=== PATIENT | male | born 1985 | race African-American/Black ===

== ENCOUNTER 2025-02-09 06:22 | Inpatient (IN) | payer MEDICAID ==
[2025-02-09] VITALS (13 sets, daily range): BP systolic 108–149; BP diastolic 67–95; PULSE 59–118; RESP 10–20; TEMP 97.4–98.1; O2SAT 99–100
[~2025-02-09] VITALS: Ht 190.5 cm; Wt 103.8 kg
--- NOTE | 2025-02-09 06:29 | ELECTROCARDIOGRAPH REPORT ---
[facility] Test Date: 2025-02-09 Test Time: 06:26:57 Pat Name: TAQUERIA GOMEZ Department: [facility] Patient ID: [id number] Room: ORTHO 4021 Gender: M Beef Cattle Farmer: : 1985 Requested By: ZENAIDA ESCOBAR Order Number: [id number] Reading MD: Dr. Derrick Cook Measurements Intervals [place] Rate: 78 P: 44 KS: 196 QRS: -166 QRSD: 162 T: 93 QT: 448 QTc: 511 Interpretive Statements Sinus rhythm Probable left atrial enlargement RBBB and LPFB Inferior infarct, acute Lateral leads are also involved Baseline wander in lead(s) V3 Electronically Signed On 02-12-2025 13:44:[address] Derrick Cook Please click the below link to view image of tracing.
[2025-02-09 07:07] LABS: BASOPHILS % (AUTO) 0.3 % (0-1); EOSINOPHILS % (AUTO) 0.5 % (0-6); HEMATOCRIT 45.4 % (42.0-52.0); HEMOGLOBIN 15.3 g/dl (14.0-17.9); LYMPHOCYTES # (AUTO) 1.8 X10'3 (1.1-4.8); LYMPHOCYTES % (AUTO) 32.8 % (21-51); MEAN CORPUSCULAR HEMOGLOBIN 30.6 PG (27.0-31.0); MEAN CORPUSCULAR HGB CONC 33.8 g/dL (33.0-36.5); MEAN CORPUSCULAR VOLUME 90.4 FL (78-98); MEAN PLATELET VOLUME 10.2 FL (7.4-10.4); MONOCYTES # (AUTO) 0.3 X10'3 (0-0.9); NEUTROPHILS # (AUTO) 3.3 X10'3 (1.8-7.7); NEUTROPHILS % (AUTO) 60.4 % (42-75); PLATELET COUNT 169 X10'3 (140-440); RED BLOOD COUNT 5.02 X10'6 (4.70-6.10); RED CELL DISTRIBUTION WIDTH 14.4 % (11.5-14.5); WHITE BLOOD COUNT 5.4 X10'3 (4.5-11.0)
--- NOTE | 2025-02-09 07:07 | RADIOLOGY REPORT ---
CHEST RADIOGRAPH Indication: CP Technique: Single frontal view of the chest was obtained Comparison: None FINDINGS: Lines and Tubes: None Lungs: No focal consolidation. Pleura: No effusion. No pneumothorax. Cardiomediastinal contours: Cardiomegaly. Bones: No acute osseous abnormality. IMPRESSION: 1. Cardiomegaly. 2. No focal airspace disease.
[2025-02-09 07:32] LABS: ALANINE AMINOTRANSFERASE 29 U/L (12-78); ALBUMIN 4.1 G/DL (3.4-5.0); ALBUMIN/GLOBULIN RATIO 1.4 (1.1-1.5); ALKALINE PHOSPHATASE 50 IU/L (46-116); ANION GAP 9 (8-16); ASPARTATE AMINO TRANSFERASE 21 U/L (10-37); BLOOD UREA NITROGEN 8 MG/DL (7-18); BUN/CREATININE RATIO 7.3 (10.0-20.0); CALCIUM 8.7 MG/DL (8.5-10.1); CHLORIDE 104 MMOL/L (99-107); CREATININE 1.09 MG/DL (0.60-1.10); GLUCOSE 114 MG/DL (70-104); POTASSIUM 3.4 MMOL/L (3.5-5.1); SODIUM 142 MMOL/L (135-145); TOTAL CARBON DIOXIDE 28.7 MMOL/L (24-32); TOTAL PROTEIN 7.1 G/DL (6.4-8.2); eCRCL 108 ML/MIN; eGFR 75 ML/MIN
[2025-02-09 07:40] LABS: PRO BRAIN NATRIURETIC PEPTIDE 176 PG/ML (0-125)
[2025-02-09] MEDS ORDERED: ROSU10TA72 PO (07:59)
[2025-02-09] MEDS ORDERED: HYDR-3686 PO (08:00)
[2025-02-09] MEDS ORDERED: SERT25TA PO (08:00)
[2025-02-09] MEDS ORDERED: IRBE75TA15 PO (08:02)
--- NOTE | 2025-02-09 08:22 | Physician Documentation ---
History of Present Illness ~ Chief Complaint: Chest Pain Stated Complaint: CHEST PAIN Time Seen by MD: 08:18 Mode of Arrival: Ambulatory HPI 39-year-old male history of tetralogy of Fallot presenting for chest pain. He reports intermittent chest pain that radiates down his right arm with numbness and tingling ongoing the last several days with associated shortness of breath. He has been off all of his medications since moving to the [facility] and does not have any follow-up or primary care doctor Medication Reconciliation Allergies: Coded Allergies: No Known Allergies (Unverified , 02/09/25) Scheduled Hydroxyzine Hcl* (Atarax*), 1 TAB PO Q12H, (Reported) Irbesartan (Irbesartan), 1 TAB PO DAILY, (Reported) Rosuvastatin Calcium (Rosuvastatin Calcium), 1 TAB PO HS, (Reported) Sertraline Hcl* (Zoloft*), 1 TAB PO DAILY, (Reported) Review of Systems All Other Systems at this time: Reviewed and Negative Constitutional: Denies: fever Physical Exam Vital Signs: RN Vital Signs have been reviewed: Yes, Temperature: 98.0, Source: Temporal, Heart Rate: 64, Respiratory Rate: 18, BP: 141/84, Pulse Oximetry: 100, Weight: 103.850 Oxygen Flow Rate: 0 Physical Exam Well-appearing no distress Cardiopulmonary clear to auscultation bilaterally no murmur Abdomen is soft nontender Lower extremity no edema Progress Progress Note Independently interpreted labs no acute abnormalities Consulted hospitalist Service who agree with management plan and graciously accept for admission Results/Orders Reviewed/noted all lab results: Yes Results/Orders Orders - ZENAIDA ESCOBAR MD Chest,Single View (02/09/25 06:24) Monitor (02/09/25 06:24) Saline Lock (02/09/25 06:24) Oxygen (02/09/25 06:24) Hs Troponin I W Calculations (02/09/25 09:24) Drug Screen, Urine (02/09/25 08:30) Page Hospitalist (02/09/25 08:34) Fill Out Med Reconciliation (02/09/25 08:34) Completed Orders - ZENAIDA ESCOBAR MD Chest,Single View (02/09/25 06:24) Cbc/Diff (02/09/25 06:24) PBNP (02/09/25 06:24) Electrocardiogram (02/09/25 06:24) CMP (02/09/25 06:24) Hs Troponin I W Calculations (02/09/25 06:24) Hs Troponin I W Calculations (02/09/25 08:24) Aspirin 81mg Chew Tablet (Aspirin 81mg C (02/09/25 08:35) Medications Received in ER Medications (Trade) Dose Ordered Sig/Leon Route PRN Reason Start Time Stop Time Status Last Admin Dose Admin (aspirin 81MG chew tablet) 324 mg ONCE ONCE PO 02/09/25 08:35 02/09/25 08:36 DC 02/09/25 08:44 324 MG Vital Signs 02/09/25 02/09/25 06:31 08:29 Temp 98.0 Pulse 64 68 Resp 18 18 B/P (MAP) 141/84 135/75 (95) Pulse Ox 100 100 O2 Flow Rate 0 Laboratory Tests Test 02/09/25 06:51 White Blood Count 5.4 Red Blood Count 5.02 Hemoglobin 15.3 Hematocrit 45.4 Mean Corpuscular Volume 90.4 Mean Corpuscular Hemoglobin 30.6 Mean Corpuscular Hemoglobin Concent 33.8 Red Cell Distribution Width 14.4 Platelet Count 169 Mean Platelet Volume 10.2 Neutrophils (%) (Auto) 60.4 Lymphocytes (%) (Auto) 32.8 Monocytes (%) (Auto) 6.0 Eosinophils (%) (Auto) 0.5 Basophils (%) (Auto) 0.3 Neutrophils # (Auto) 3.3 Lymphocytes # (Auto) 1.8 Monocytes # (Auto) 0.3 Eosinophils # (Auto) 0.0 Basophils # (Auto) 0.0 CBC Comment Sodium Level 142 Potassium Level 3.4 L Chloride Level 104 Carbon Dioxide Level 28.7 Anion Gap 9 Blood Urea Nitrogen 8 Creatinine 1.09 Estimated GFR/1.73 m2 75 BUN/Creatinine Ratio 7.3 L Glucose Level 114 H Calcium Level 8.7 Total Bilirubin 1.0 Aspartate Amino Transf (AST/SGOT) 21 Alanine Aminotransferase (ALT/SGPT) 29 Alkaline Phosphatase 50 Troponin I High Sensitivity 9 Pro-B-Type Natriuretic Peptide 176 H Total Protein 7.1 Albumin 4.1 Globulin 3.0 Albumin/Globulin Ratio 1.4 Chemistry Comments EKG/XRAY/CT/US/VASC/MRI EKG : Additional Comment EKG independently interpreted by myself time 6:26 a.m. indication chest pain sinus rhythm rate 78 right bundle branch block no ST-elevation no prior for comparison Heart Score: Heart Score Response (Comments) Value History Highly Suspicious 2 EKG Repolarization Disturb 1 Age <45 0 Risk Factors 1 or 2 risk factors 1 Troponin Normal limit 0 Total 4 Medical Decision Making Differential Dx:Considerations: Include: aortic dissection, chest wall pain, cholelithiasis Departure Disposition: 09 ADMITTED INPATIENT Admitted to Inpatient Unit: to hospitalist Impression: Primary Impression: Acute chest pain Referrals: NO PRIMARY CARE PROVIDER (PCP) Signature Scribe Signature: na Attestation: ZENAIDA Zheng MD February 09, 2025 08:22
[2025-02-09] MEDS: aspirin 81mg tab.chew PO ONE (08:44)
[2025-02-09] MEDS ORDERED: magnesium sulf-water 4G/100mL 100 ML IV PRN (08:55)
[2025-02-09] MEDS ORDERED: HYDROcodone/acetaminophen 5mg/325mg tablet PO PRN (08:55)
[2025-02-09] MEDS ORDERED: magnesium hydroxide 30ml (MOM) UD suspension PO PRN (08:55)
[2025-02-09] MEDS ORDERED: potassium Cl 40MEQ/1/2NS 520ml 520 ML IV PRN (08:55)
[2025-02-09] MEDS ORDERED: potassium Cl 20 mEq SR tablet PO PRN (08:55)
[2025-02-09] MEDS ORDERED: acetaminophen 325mg tablet PO PRN ×2 (08:55)
[2025-02-09] MEDS ORDERED: magnesium sulf-water 2g/50mL 50 ML IV PRN (08:55)
[2025-02-09] MEDS: PERFLUTREN PROTEIN-A MICROSPHR (Optison) 0.22 MG/ML 3ML VIAL IV ONE ×2 (09:07→12:20)
[2025-02-09 11:39] LABS: URINE AMPHETAMINE SCREEN NEGATIVE (Neg); URINE BARBITUATE SCREEN NEGATIVE (Neg); URINE BENZODIAZEPINES SCREEN NEGATIVE (Neg); URINE CANNABINOID SCREEN POSITIVE (Neg); URINE COCAINE SCREEN NEGATIVE (Neg); URINE METHADONE SCREEN NEGATIVE (Neg); URINE OPIATE SCREEN NEGATIVE (Neg); URINE PHENCYCLIDINE SCREEN NEGATIVE (Neg)
[2025-02-09] MEDS: pantoprazole 40 MG vial IV ONE (11:59)
[2025-02-09 12:03] LABS: CHOL/HDL RATIO 4.7 (0.00-4.99); CHOLESTEROL 193 MG/DL (0-200); HDL CHOLESTEROL 41 MG/DL (35-60); LDL CHOLESTEROL 134 MG/DL (50-100); TRIGLYCERIDES 99 MG/DL (20-135)
[2025-02-09 12:13] LABS: HEMOGLOBIN A1C 5.7 % (4.5-6.2)
[2025-02-09] MEDS ORDERED: metoprolol tartrate 1mg/ml inj IV PRN (12:15)
[2025-02-09] MEDS ORDERED: nitroGLYCERIN 0.4mg SUBLingual tab SL PRN (12:15)
--- NOTE | 2025-02-09 12:16 | RADIOLOGY REPORT ---
CLINICAL INFORMATION: CVA. TECHNIQUE: Axial imaging was obtained through the brain without contrast. Coronal and sagittal reform atted images were obtained, reviewed, and stored. Images were reviewed in brain and bone windows. Al l CT scans at this medical facility are performed using dose modulation techniques as appropriate to a performed exam including the following: Automated exposure control was utilized; adjustment of the MA and/or KV according to patient size; and use of iterative reconstruction technique. CTDIvol = 58.5 7 mGy DLP = 1043.97 mGy-cm COMPARISON: None FINDINGS: There is no acute intracranial hemorrhage. No mass effect or midline shift. The ventricles and sulci are within normal limits in size for age. Basal cisterns are patent. The calvarium is unre markable. Paranasal sinuses and mastoid air cells are clear. Nonspecific small parenchymal calcificat ion in the right cerebellar hemisphere. There appear to be calcifications adjacent to the medial aspe ct of the IACs, although not well evaluated on this exam. IMPRESSION: 1. No CT evidence of acute intracranial abnormality. Correlate with clinical findings. MRI could be o btained to further evaluate if clinically indicated. 2. There appear to be focal calcifications adjacent to the medial aspects of the IACs bilaterally, al though not well evaluated on this exam. Can not exclude calcified masses. If clinically indicated, de dicated imaging of the IACs with CT or MRI could be considered.
[2025-02-09] MEDS: normal saline 1000ml 1,000 ML IV SCH (13:07)
[2025-02-09] MEDS ORDERED: iohexol 350MG/ML 100ml bottle IV ONE (14:07)
[2025-02-09] MEDS: potassium Cl 20 mEq SR tablet PO PRN (14:10)
[2025-02-09] MEDS: mag hydrox/Alum hydrox/simeth 30ml oral suspension PO PRN (14:11)
--- NOTE | 2025-02-09 14:14 | HISTORY AND PHYSICAL ---
History & Physical Providers to ~ History of Present Illness Reason for Admit\Complaint: angina, r/o cva History of Present Illness Prashant Patel is a 39-year-old male with a past medical history of Tetralogy of Follot s/p repair, NE in 2023 with no stent placement, HTN, anxiety disorder who presented to the ED with chief complaint of acute onset left-sided weakness and shortness of breath with associated symptoms of headache, nausea, chest pain that radiates down abdomen x 3-4 days. Patient describes chest pain and abdominal pain as burning qualities. Patient denies prior CVA, cardiac arrhythmia, DVT/PE, or GIB. Patient denies palpitations, n/v/d, fever, chills. Patient is to be admitted for further workups and treatment. Allergies: Coded Allergies: No Known Allergies (Unverified , 02/09/25) Home Medications Home Medications Active Reported Irbesartan 75 Mg Tablet 1 Tab PO DAILY 30 Days Atarax* (Hydroxyzine HCl) 25 Mg Tablet 1 Tab PO Q12H 30 Days Zoloft* (Sertraline HCl) 25 Mg Tablet 1 Tab PO DAILY 30 Days Rosuvastatin Calcium 10 Mg Tablet 1 Tab PO HS 30 Days Past Medical History Past Medical History Tetralogy of Fallot NE Hypertension Anxiety disorder Past Surgical History Surgical History Comment s/p repair of Tetraology of Fallot Family History Family History: FH: heart disease Past Social History Social History Comment Alcohol: Denies Tobacco: Denies Illicit drug use: Cannabis Living situation: Lives at home with partner ROS ROS Other than positives in HPI, all 14 review of systems are negative Exam Vitals: Vital Signs Date Time Temp Pulse Resp B/P (MAP) Pulse Ox O2 Delivery O2 Flow Rate FiO2 02/09/25 13:04 97.4 104 18 139/83 (101) 100 02/09/25 06:31 0 General: A&Ox 3, NAD HEENT: Normocephalic, PERRLA Neck: Supple, trachea midline, no JVD Chest: Clear to auscultation bilaterally Cardiovascular: RRR, S1&S2 Abdomen: Soft and nontender Extremities: No cyanosis/clubbing/or edema Central Nervous System: No focal deficits Musculoskeletal: No paraspinal muscle tenderness, no muscle spasm Skin: Warm and intact Diagnostic Data Last Recorded Lab Results: 02/09/25 0651 02/09/25 0651 Additional Plan # Angina # Tetralogy of Fallot # HTN # CAD -ADD-RS score 2, EKG sinus at [address]-elevation no prior for comparison, CT head negative, CTA chest/abdomen/pelvis unremarkable -follow TTE, Lexiscan # CVA- rule out -CT head negative, [facility] neurology consult, CTA head/neck, MRI head # Anxiety disorder -prn diazepam DVT/VTE Prophylaxis: heparin Code Status: Full Code I spent a total of 35 minutes discussing Advanced Care Planning measures with the patient. Advance care planning: Discussed with patient the importance of advance care planning in case of emergent situation. We discussed various resuscitative measures/ ACP with the patient at the time of admission. Patient voiced understanding and patient has decided on a full code status Date of Service: February 09, 2025 Billing Provider: LEVI ACKERMAN Common Visit Codes: 58006-[id number] INP/OBS CARE (HIGH) Secondary Visit Codes: [id number] CARE PLAN 30 MINUTES LEVI ACKERMAN February 09, 2025 14:14
--- NOTE | 2025-02-09 15:25 | RADIOLOGY REPORT ---
EXAM: CT CTA CHEST ABDOMEN PELVIS W/ IV CONTRAST HISTORY: chest pain, abd pain; EVALUATE FOR DISSECTION PER LEVI ACKERMAN COMPARISON: None TECHNIQUE: Helical high resolution CT images of the chest, abdomen, and pelvis were performed with 10 0 ml Isovue 370 IV contrast using CTA protocol. Sagittal and coronal reformatted images and 3-D MIP i mages were obtained. This CT exam was performed using one or more of the following dose reduction george hniques: Automated exposure control, adjustment of the mA and/or kv according to patient size, or the use of iterative reconstruction techniques. Radiation Dose : CT Dose: CTDI volume is 29.09 mGy. Dose-length product is 1823.58 mGy*cm FINDINGS: CTA : Mild dilatation of the aortic root up to 4 cm.. Otherwise, no evidence of aortic aneurysm or dissect ion. The proximal portion of the major aortic arch branches are unremarkable. Common origin of the celiac and SMA with the celiac and SMA and their branches unremarkable. Bilateral renal arteries unremarkable. The LORI is unremarkable. Bilateral common iliac, external and internal iliac arteries unremarkable. Chest: The thyroid gland is unremarkable. Borderline cardiomegaly. There appears to be partial wall calcification of the right ventricle exten ding to The pulmonary trunk. The pulmonary trunk is otherwise normal in size. No pulmonary embolism. Prominence of bilateral pulmonary arteries with the left main pulmonary artery measuring up to 3.7 cm and right main pulmonary artery measuring up to 3.1 cm in maximum diameter. No pneumothorax, pleural effusion or focal airspace consolidation. Bibasilar atelectasis. No significant mediastinal lymphadenopathy. Soft tissues unremarkable. No destructive osseous lesions noted. Midline sternotomy wires are noted. Abdomen and pelvis: Reflux of contrast into the IVC and hepatic veins. Otherwise, liver, spleen, gallbladder, pancreas an d adrenal glands unremarkable. Kidneys, ureters and urinary bladder unremarkable. Prostate is unremarkable. Stomach is unremarkable. Mild wall Thickening of proximal small bowel loops which is most likely from inadequate distension. The remainder of the small bowel loops unremarkable. Appendix is not definite ly visualized. Distal rectal wall thickening which is most likely from inadequate distension. Otherw ise, large bowel is unremarkable. No evidence of intraperitoneal free air or free fluid. No significant lymphadenopathy. Small fat containing left inguinal hernia. Minimal body wall edema. No destructive osseous lesions ar e noted. IMPRESSION: Midline sternotomy wires consistent with prior cardiothoracic surgery. Recommend correlation with his tory. No pulmonary embolism. No aortic aneurysm or dissection. Partial wall calcification of the left ventricle with involvement of the pulmonary trunk. Prominence of bilateral main pulmonary arteries. Correlate for possible pulmonary arterial hypertensi on. Reflux of contrast into the IVC and hepatic veins suggestive of right heart dysfunction. Bibasilar atelectasis. Otherwise, no evidence for acute intrathoracic abnormalities. Mild wall thickening of proximal small bowel loops which is most likely from inadequate distention wi th mild enteritis not completely excluded.
[2025-02-09] MEDS: aminophylline 250mg/10ml inj. IV PRN (15:35)
[2025-02-09] MEDS: regadenoson 0.4mg/5ml syringe IV PRN (15:55)
[2025-02-09] MEDS: aminophylline 500mg/20ml vial IV ONE (15:56)
[2025-02-09] MEDS: ondansetron/PF 4mg/2ml inj IV PRN (16:11)
[2025-02-09] MEDS: HYDROcodone/acetaminophen 10/325mg tab PO PRN (17:00)
--- NOTE | 2025-02-09 17:31 | CARDIOLOGY REPORT ---
APPROVED REPORT EXAM: Comprehensive 2D, Doppler, and color-flow Echocardiogram. Patient Location: [facility] Blood Pressure: 122/80 mmHg Heart Rate: 59 bpm Rhythm: Sinus Bradycardia Indications CHF Hx Tetrology of Fallot CABG x 3 at 6 weeks old CABG x 1 at 2 years old Pro [id number] No local case management social worker No previous echo here 2D Dimensions LA Diam3.9 cm IVSd 1.4 (0.7-1.1cm) LVDd 4.8 cm PWd 1.1 (0.7-1.1cm) IVSs 2.0 (0.8-1.2cm) LVDs 3.0 (2.5-4.0cm) Aortic Root(2D) 3.3 cm PWs 1.5 (0.8-1.2cm) LVOT Diameter 2.19 (1.8-2.4cm) LVEF(%) 66.2 (>50%) IVC 18.38 mmFS (%) 36.5 % SV 69.9 ml CO 4.0 L/min M-Mode Dimensions MV EPSS 0.5 (<0.5cm) Aortic Valve AoV Peak Anthony. 145.8 cm/s AoV VTI 27.7 cm AO Peak GR. 8.5 mmHg AO Mean GR. 3 mmHg LVOT VTI 17.14 cm LVOT Peak Anthony. 79.6 cm/s LEIF(VTI)/BSA 2.32 cm2/m2 LEIF (VTI) 2.32 cm2 Mitral Valve MV E Velocity 148.1 cm/s MV Peak Gr. 11 mmHg MV DECEL TIME 200 ms MV A Velocity 50.2 cm/s MV PHT 52 ms E/A Ratio 3.0 MVA (PHT) 4.23 cm2 MV TRwf323.6 cm/s TDI Medial E' P. V 13.81 cm/s E/Medial E' 10.7 Tricuspid Valve TR P. Velocity 311 cm/s RAP ESTIMATE 10 mmHg TR Peak Gr. 39 mmHg RVSP 49 mmHg Pulmonary Vein S1 Velocity 34.9 cm/s D2 Velocity 73.3 cm/s PVa Wdkjyare42.0 cm/s PVa [id number] msec LEFT VENTRICLE LV is normal in size with moderate septal hypertrophy. Overall systolic function appears normal. Prob able high ventricular septal repair, unknown by patient, no records. No transseptal flow detected. LV EF is 60-65%. RIGHT VENTRICLE RV appears moderately dilated with normal contractility. RVSP is estimated at 49 mmHG. ATRIA The left atrium size is normal. Right atrium is severely dilated. Mobile, bowed interatrial septum - no flow detected. AORTIC VALVE Trileaflet AV appears sclerotic without stenosis. Trivial insufficiency. MITRAL VALVE MV is thickened with no annular calcification or stenosis. Trace mitral regurgitation. TRICUSPID VALVE The tricuspid valve is normal in structure. Mild tricuspid regurgitation. PULMONIC VALVE The pulmonic valve is normal in structure with mild pulmonic insuffuciency. The valve is identified a nd appears to open well. No gradient detected across the valve itself. In the distal segment of the pulmonary artery, before the bifurcation, there is a visual narrowing (? abberant band?) and velocity increases to 3.65 m/s with a peak/mean gradient of 53/28 mmHG. Unable to rule out PA atresia or jae rrant band. GREAT VESSELS The aortic root is normal in size. The IVC is normal in size and collapses >50% with inspiration. PERICARDIUM There is no pericardial effusion. Other Information Study Quality: Adequate Conclusion LV is normal in size with moderate septal hypertrophy. Overall systolic function appears normal. LVEF is 60-65%. RV appears moderately dilated with normal contractility. RVSP is estimated at 49 mmHG. The left atrium size is normal. Trileaflet AV appears sclerotic without stenosis. Trivial insufficiency. MV is thickened with no annular calcification or stenosis. Trace mitral regurgitation. The tricuspid valve is normal in structure. Mild tricuspid regurgitation. The pulmonary valve is normal in structure. Mild pulmonic regurgitation. The PV is normal in structu re and opens well. Down the pulmonary artery, before the bifurcation, there is a narrowing where the velocity increases to 3.65 m/s with a peak/mean gradient of 53/28 mmHG. There is no pericardial effusion.
[2025-02-09] MEDS: diazepam inj 5 MG/ML inj. IV PRN (18:27)
--- NOTE | 2025-02-09 19:30 | RADIOLOGY REPORT ---
PROCEDURE: MR MRI HEAD INDICATION: cva EXAM DATE: 02/09/2025 06:34 PM COMPARISON: CT CT HEAD on DOS: 02/09/25 TECHNIQUE: MRI of the brain without intravenous contrast. FINDINGS: Limited by motion. Diffusion weighted images of the brain demonstrate no evidence of acute infarction. There is no evidence of acute intracranial hemorrhage, extra-axial collection, mass effect, midline s hift, herniation or hydrocephalus. The ventricles, sulci and cisterns appear age appropriate. The signal intensities of the brain parenchyma are within normal limits. There are no signal abnormalities on the susceptibility weighted sequences. The major vascular flow voids are present. The visualized paranasal sinuses and mastoid air cells are clear. The surrounding soft tissues and o sseous structures are unremarkable. IMPRESSION: 1. Limited by motion. No evidence of acute infarction, intracranial hemorrhage, mass effect or hydroc ephalus. HS:Y
[2025-02-09] MEDS: pantoprazole 40 MG vial IV SCH (19:48)
[2025-02-09] MEDS: heparin, porcine 5000 units/ml vial SQ SCH (19:49)
[2025-02-09] MEDS: atorvastatin 20mg tablet PO SCH (19:49)
[2025-02-09] MEDS: docusate sod 100mg capsule PO SCH (19:49)
--- NOTE | 2025-02-09 19:59 | [facility] CONSULT REPORT ---
[facility] Procedure Note [facility] Procedure Note Consult [facility] Note # Demographics Consult Type: General Neurology Patient Location: Inpatient First Name: Prashant Last Name: Amnada Date of : 1985 Age: 39 Gender: Male Facility: [facility] Time of Initial Page (): 02/09/2025 19:14 Time of Return Call (): 02/09/2025 19:15 # HPI Chief Complaint: - weakness (focal) - headache History: 39 yo M p/w L sided weakness/numbness, headache, SOB, chest pain, palpitation, nausea, abd pain for 3-4 days. He reported recently moved with his whole family and it has been stressful. # Scores Level of Consciousness 1a: [0] = Alert; keenly responsive LOC Questions 1b: [0] = Answers both questions correctly LOC Commands 1c: [0] = Performs both tasks correctly Best Gaze 2: [0] = Normal Visual 3: [0] = No visual loss Facial Palsy 4: [0] = Normal symmetrical movements Motor Arm Left 5a: [0] = No drift Motor Arm Right 5b: [0] = No drift Motor Leg Left 6a: [0] = No drift Motor Leg Right 6b: [0] = No drift Limb Ataxia 7: [0] = Absent Sensory 8: [1] = [id number]-[id number] sensory loss Best Language 9: [0] = No aphasia Dysarthria 10: [0] = Normal Extinction and Inattention 11: [0] = No abnormality NIHSS Total: 1 # ROS Additional: - complete review of systems otherwise negative # PMH-FH-SH Past Medical History: - hypertension - anxiety NC # Data Head CT: - no bleed MRI: - no acute ischemia - preliminarily reviewed by me, please refer to radiology read for official reading # Assessment Impression: Somatic symptoms disorder # Plan Other: - If patient has any neurological deterioration please call me back immediately - telemetry monitoring - would not pursue stroke work-up if MRI is negative Psychology outpatient referral # Logistics Attestation of consult completion: The patient is located at: [facility]. Facility staff participated in the visit. I performed this telemedicine visit from my offsite office utilizing interactive 2 way audio and visual telecommunication technology. Total time spent in telemedicine encounter: I spent 21 minutes reviewing clinical data and/or imaging, obtaining history, examining the patient, communicating with the onsite care team, and in preparation of this report. # Demographics First Name: Prashant Last Name: [facility] Facility: [facility] Electronically signed at 02/09/2025 19:58 (Pierce Time) by Les Cummins MD Neuro Consult Order placed for: Yes LES CUMMINS MD February 09, 2025 19:59
[2025-02-09] MEDS: K and/or MAG REPLACEMENT MC SCH (20:00)
[2025-02-10 00:47] VITALS: O2SAT 99
--- NOTE | 2025-02-10 05:06 | RADIOLOGY REPORT ---
Reason for study/Clinical History: prior IN, chest pain, heart score 4 Comparison Study: None Myocardial Perfusion Study with SPECT Technique: The patient received an intravenous injection of 8.5 mCi of technetium-99m Sestamibi whi le at rest. After a short delay, SPECT tomographic images of the heart were obtained. The patient jen bradley went to the stress lab where they received an intravenous Lexiscan utilizing standard protocol. 35 mCi of technetium-99m Sestamibi was injected intravenously immediately after the start of the in fusion. Gated SPECT tomographic images of the heart were acquired and processed. Findings: Non gated images obtained secondary to irregular heartbeat. Mild reversible defect is present in the apex. Impression: Mild small reversible defect at the apex may represent a small area of ischemia. Clinical correlatio n advised.
[2025-02-10 06:00] VITALS: BP 118/62; PULSE 68; RESP 15; TEMP 97.8; O2SAT 100
[2025-02-10 07:24] LABS: BASOPHILS % (AUTO) 0.4 % (0-1); HEMATOCRIT 44.3 % (42.0-52.0); HEMOGLOBIN 14.8 g/dl (14.0-17.9); LYMPHOCYTES # (AUTO) 1.9 X10'3 (1.1-4.8); LYMPHOCYTES % (AUTO) 39.2 % (21-51); MEAN CORPUSCULAR HEMOGLOBIN 30.5 PG (27.0-31.0); MEAN CORPUSCULAR HGB CONC 33.3 g/dL (33.0-36.5); MEAN CORPUSCULAR VOLUME 91.6 FL (78-98); MEAN PLATELET VOLUME 10.1 FL (7.4-10.4); MONOCYTES # (AUTO) 0.3 X10'3 (0-0.9); MONOCYTES % (AUTO) 5.6 % (2-12); NEUTROPHILS # (AUTO) 2.6 X10'3 (1.8-7.7); NEUTROPHILS % (AUTO) 53.8 % (42-75); PLATELET COUNT 161 X10'3 (140-440); RED BLOOD COUNT 4.84 X10'6 (4.70-6.10); RED CELL DISTRIBUTION WIDTH 14.6 % (11.5-14.5); WHITE BLOOD COUNT 4.9 X10'3 (4.5-11.0)
[2025-02-10 08:02] LABS: ALANINE AMINOTRANSFERASE 21 U/L (12-78); ALBUMIN 3.2 G/DL (3.4-5.0); ALKALINE PHOSPHATASE 44 IU/L (46-116); ANION GAP 6 (8-16); ASPARTATE AMINO TRANSFERASE 16 U/L (10-37); BILIRUBIN,TOTAL 1.2 MG/DL (0.1-1.0); BLOOD UREA NITROGEN 6 MG/DL (7-18); BUN/CREATININE RATIO 5.4 (10.0-20.0); CALCIUM 8.2 MG/DL (8.5-10.1); CHLORIDE 109 MMOL/L (99-107); CREATININE 1.12 MG/DL (0.60-1.10); GLUCOSE 98 MG/DL (70-104); MAGNESIUM 2.2 MG/DL (1.5-2.4); POTASSIUM 4.6 MMOL/L (3.5-5.1); SODIUM 143 MMOL/L (135-145); TOTAL CARBON DIOXIDE 27.9 MMOL/L (24-32); TOTAL PROTEIN 6.4 G/DL (6.4-8.2); eCRCL 105 ML/MIN; eGFR 88 ML/MIN
[2025-02-10 09:33] VITALS: BP 142/88; PULSE 66; RESP 20; TEMP 97.5; O2SAT 100
[2025-02-10] MEDS ORDERED: LORazepam 1 MG tablet PO PRN (11:05)
--- NOTE | 2025-02-10 12:04 | PROGRESS NOTE ---
Daily Progress Note Providers to CC ~ Antibiotic Timeout Antibiotic Ordered?: No Subjective No acute events overnight. Patient examined at bedside. No new complaints not in acute distress. Patient reports chest discomfort, but denies shortness of breath, palpitations, abdominal pain, n/v/d. Vss, labs unremarkable. Tele sinus in 60s. TTE LVEF 60-65%, RVSP 49 mmHg without significant valvular heart disease. Lexiscan shows mild small reversible defect the apex. Consulted die maker Dr. Olvera who requests for cath report from last year in [place]. Staff working on request. Neurology consulted for left-sided weakness with diagnosis of somatic symptoms disorder. MRI head negative. Outpatient psychologist referral recommended. Objective Vital Signs Date Time Temp Pulse Resp B/P (MAP) Pulse Ox O2 Delivery O2 Flow Rate FiO2 02/10/25 09:33 97.5 66 20 142/88 (106) 100 Room Air 02/09/25 15:49 0.0 Result Diagram: 02/10/2562802/10/25628 Physical Exam General: A&Ox 3, NAD HEENT: Normocephalic, PERRLA Neck: Supple, trachea midline, no JVD Chest: Clear to auscultation bilaterally Cardiovascular: RRR, S1&S2 GI: Soft and nontender Extremities: No cyanosis/clubbing/or edema EMBOSSER APPRENTICE: CN II-XII intact, no focal deficits Musculoskeletal: No paraspinal muscle tenderness, no muscle spasm Skin: Warm and intact Problem\Assessment\Plan # Unstable Angina # Tetralogy of Fallot # HTN # CAD -ADD-RS score 2, EKG sinus at [address]-elevation no prior for comparison, CT head negative, CTA chest/abdomen/pelvis unremarkable -02/10: TTE LVEF 60-65%, RVSP 49 mmHg without significant valvular heart disease. Lexiscan shows mild small reversible defect the apex. Consulted die maker Dr. Olvera who requests for cath report from last year in [place]. Staff working on request. Tele sinus in 60s. # Somatic symptom disorder # Anxiety disorder # CVA- ruled out -CT head negative, [facility] neurology consult, MRI head -02/10: MRI negative -Neurology consulted for left-sided weakness with diagnosis of somatic symptoms disorder. MRI head negative. Outpatient psychologist referral recommended. -prn diazepam DVT/VTE Prophylaxis: heparin Code Status: Full Code Date of Service: February 10, 2025 Billing Provider: LEVI ACKERMAN Common Visit Codes: [id number] INP/OBS CARE(HIGH) LEVI ACKERMAN February 10, 2025 12:04
[2025-02-10 18:00] VITALS: BP 131/78; PULSE 67; RESP 18; TEMP 98.1; O2SAT 99
[2025-02-10 22:00] VITALS: BP 134/87; PULSE 57; RESP 16; TEMP 98.6; O2SAT 100
[2025-02-11 06:00] VITALS: BP 104/58; PULSE 69; RESP 18; TEMP 97.5; O2SAT 100
[2025-02-11 06:18] LABS: BASOPHILS % (AUTO) 0.3 % (0-1); EOSINOPHILS % (AUTO) 0.6 % (0-6); HEMATOCRIT 42.2 % (42.0-52.0); HEMOGLOBIN 14.2 g/dl (14.0-17.9); LYMPHOCYTES # (AUTO) 1.8 X10'3 (1.1-4.8); LYMPHOCYTES % (AUTO) 39.1 % (21-51); MEAN CORPUSCULAR HEMOGLOBIN 30.4 PG (27.0-31.0); MEAN CORPUSCULAR HGB CONC 33.6 g/dL (33.0-36.5); MEAN CORPUSCULAR VOLUME 90.7 FL (78-98); MEAN PLATELET VOLUME 10.4 FL (7.4-10.4); MONOCYTES # (AUTO) 0.3 X10'3 (0-0.9); MONOCYTES % (AUTO) 6.2 % (2-12); NEUTROPHILS # (AUTO) 2.5 X10'3 (1.8-7.7); NEUTROPHILS % (AUTO) 53.8 % (42-75); PLATELET COUNT 155 X10'3 (140-440); RED BLOOD COUNT 4.66 X10'6 (4.70-6.10); RED CELL DISTRIBUTION WIDTH 13.9 % (11.5-14.5); WHITE BLOOD COUNT 4.6 X10'3 (4.5-11.0)
[2025-02-11 06:25] LABS: ALANINE AMINOTRANSFERASE 22 U/L (12-78); ALBUMIN 3.3 G/DL (3.4-5.0); ALBUMIN/GLOBULIN RATIO 1.2 (1.1-1.5); ALKALINE PHOSPHATASE 42 IU/L (46-116); ANION GAP 9 (8-16); ASPARTATE AMINO TRANSFERASE 17 U/L (10-37); BILIRUBIN,TOTAL 1.3 MG/DL (0.1-1.0); BLOOD UREA NITROGEN 8 MG/DL (7-18); BUN/CREATININE RATIO 7.3 (10.0-20.0); CHLORIDE 106 MMOL/L (99-107); GLUCOSE 87 MG/DL (70-104); MAGNESIUM 1.8 MG/DL (1.5-2.4); POTASSIUM 3.4 MMOL/L (3.5-5.1); SODIUM 140 MMOL/L (135-145); TOTAL CARBON DIOXIDE 24.9 MMOL/L (24-32); TOTAL PROTEIN 6.1 G/DL (6.4-8.2); eCRCL 107 ML/MIN; eGFR 90 ML/MIN
[2025-02-11] MEDS: sertraline 25mg tablet PO SCH (08:06)
[2025-02-11 10:00] VITALS: BP 126/66; PULSE 61; RESP 16; TEMP 97.4; O2SAT 99
[2025-02-11] MEDS ORDERED: ATOR40TA PO (10:59)
[2025-02-11] MEDS ORDERED: PANT40TA54 PO (10:59)
[2025-02-11] MEDS ORDERED: ASPI81TA52 PO (10:59)
[2025-02-11] MEDS ORDERED: LORA-269 PO (10:59)
[2025-02-11] MEDS: aspirin 81mg, enteric-coated 1 TAB TABLET.DR PO ONE (11:30)
[2025-02-11] MEDS: potassium Cl 20 mEq SR tablet PO ONE (11:30)
--- NOTE | 2025-02-11 17:12 | DISCHARGE SUMMARY ---
Discharge Summary Providers to CC ~ Discharge Summary Admission Diagnosis: unstable angina, Tetralogy of Fallot Hospital Course DATE OF ADMISSION: 02/09/25 DATE OF DISCHARGE: 02/11/25 Discharge Diagnosis\Comment: Chest pain, atypical likely 2/2 anxiety disorder Tetralogy of Fallot s/p repair HTN CAD Somatic symptom disorder Anxiety disorder Hypokalemia CVA- ruled out Operations\Procedures: None Consultants: Business Applications Developer Nidhi Jenkins Teleneurologist Les Whittaker Complications: None Condition on DC: Stable New Medications: Aspirin (Aspirin EC) 81 Mg Tablet.dr 1 TAB PO DAILY for 30 Days, #30 TAB Atorvastatin Calcium* (Lipitor*) 40 Mg Tablet 1 TAB PO HS for 30 Days, #30 TAB Lorazepam (Ativan) 1 Mg Tablet 1 TAB PO Q12H PRN PRN for anxiety for 10 Days, #20 TAB 0 Refills Pantoprazole Sodium (Pantoprazole Sodium) 40 Mg Tablet.dr 40 MG PO DAILY for 30 Days, #30 TAB.SR Continued Medications: Sertraline Hcl* (Zoloft*) 25 Mg Tablet 1 TAB PO DAILY for 30 Days, #30 TAB 0 Refills Discontinued Medications: Rosuvastatin Calcium (Rosuvastatin Calcium) 10 Mg Tablet 1 TAB PO HS for 30 Days, #30 TAB 0 Refills Discharge Summary: History of Present Illness Prashant Patel is a 39-year-old male with a past medical history of Tetralogy of Follot s/p repair, [place] s/p angiogram in May 2024 with no stent placement, HTN, anxiety disorder who presented to the ED with chief complaint of acute onset left-sided weakness and shortness of breath with associated symptoms of headache, nausea, chest pain that radiates down abdomen x 3-4 days. Patient describes chest pain and abdominal pain as burning qualities. Patient denies prior CVA, cardiac arrhythmia, DVT/PE, or GIB. Patient denies palpitations, n/v/d, fever, chills. Patient is to be admitted for further workups and treatment. Hospital Course Initial diagnostic findings were unremarkable including chest x-ray, head CT, unremarkable CTA abdomen/pelvis, negative troponin series. EKG revealed sinus at a rate of 78 bpm, RBBB, no ST-elevation. Case was consulted with neurologist Dr. Dobson who suggested etiology to be somatic symptom disorder and follow-up with outpatient psychiatrist. A subsequent MRI head resulted negative. Lexiscan came back notable for mild small reversible defect at the apex may represent a small area of ischemia. TTE showed moderate septal hypertrophy, overall normal systolic function with LVEF of 60-65% and RVSP of 49 mmHg. A cath report from 05/2024 was requested. In report, patient had EKG changes suspicious for [place] in which he underwent cardiac catheterization for, which showed normal coronary arteries without any high-grade stenosis. Case was discussed with on-call delivery nurse Nidhi Jenkins who recommended follow-up with outpatient delivery nurse and recommended against a repeat cardiac catheterization given patient recently underwent catheterization without significant findings. Telemetry remained sinus in 60s. Patient displayed severe anxiety in which was treated with anxiolytics with. Patient did not experience further complications throughout the entire hospital stay and remained clinically and hemodynamically stable. Patient was seen and examined on the day of discharge. On day of discharge, vss and labs unremarkable. All labs, diagnostic workups, discharge plan discussed with patient in details during visit before discharge. All questions and concerns answered to the best of my professional knowledge. Patient is to be discharged to home to self and to follow-up with PCP, out patient psychiatrist, and outpatient delivery nurse within 2 weeks. Physical Exam General: A&Ox 3, NAD HEENT: Normocephalic, PERRLA Neck: Supple, trachea midline, no JVD Chest: Clear to auscultation bilaterally Cardiovascular: RRR, S1&S2 GI: Soft and nontender Extremities: No cyanosis/clubbing/or edema CREW DISPATCHER: CN II-XII intact, no focal deficits Musculoskeletal: No paraspinal muscle tenderness, no muscle spasm Skin: Warm and intact *Problems/Diagnosis: (1) Anxiety disorder Status: Acute (2) Acute chest pain Status: Acute Total Time Spent on D/C: > 30 Minutes Date of Service: February 11, 2025 Billing Provider: LEVI ACKERMAN Common Visit Codes: 35059-ERC/OBS DISCH DAY >30min LEVI ACKERMAN February 11, 2025 17:12
[2025-02-12] MEDS ORDERED: aspirin 81mg, enteric-coated 1 TAB TABLET.DR PO SCH (08:00)
== END 2025-02-11 11:40 | disposition home or self-care (01) | DRG 198 ==
LOC: ER 06:24 → ED HOLD 08:58 → ORTHO 4S 12:28
PROVIDERS: ADMIT Nurse Practitioner Family; ATTEND Nurse Practitioner Family
PROC: B4201ZZ Computerized Tomography (CT Scan) of Abdominal Aorta using Low Osmolar Contrast (ICD-10-PCS; principal; 2025-02-09)
PROC: B4281ZZ Computerized Tomography (CT Scan) of Bilateral Renal Arteries using Low Osmolar Contrast (ICD-10-PCS; 2025-02-09)
PROC: B42C1ZZ Computerized Tomography (CT Scan) of Pelvic Arteries using Low Osmolar Contrast (ICD-10-PCS; 2025-02-09)
PROC: B42H1ZZ Computerized Tomography (CT Scan) of Bilateral Lower Extremity Arteries using Low Osmolar Contrast (ICD-10-PCS; 2025-02-09)
PROC: B4211ZZ Computerized Tomography (CT Scan) of Celiac Artery using Low Osmolar Contrast (ICD-10-PCS; 2025-02-09)
PROC: 4A02XM4 Measurement of Cardiac Total Activity, External Approach (ICD-10-PCS; 2025-02-09)
PROC: 3E033HZ Introduction of Radioactive Substance into Peripheral Vein, Percutaneous Approach (ICD-10-PCS; 2025-02-09)
DX: R07.89 Other chest pain (principal); I25.110 Atherosclerotic heart disease of native coronary artery with unstable angina pectoris; E87.6 Hypokalemia; I10 Essential (primary) hypertension; F41.9 Anxiety disorder, unspecified; I45.10 Unspecified right bundle-branch block; Z79.899 Other long term (current) drug therapy
CPT/HCPCS: 36415; 70450; 70551; 71045; 71275; 74174; 78452; 80053; 80061; 80305; 83036; 83735; 83880; 84484; 85025; 87081; 93005; 93017; 93306; 96372; 96374; 96375; 96376; 99285; A9500; G0378; J0280; J1644; J2405; J2470; J2785; J3360; J3490; J7030; Q9967